=== PATIENT | male | born 1975 | race Caucasian/White ===

== ENCOUNTER 2021-04-05 17:43 | Emergency (ER) | payer OTHER ==
--- NOTE | 2021-04-05 17:55 | EDM.PDOC ---
ED HPI GENERAL MEDICAL PROBLEM - General Stated Complaint: TIGHT CHEST/SOB Time Seen by Provider: 04/05/21 17:55 Source of Information: Reports: Patient History Limitations: Reports: No Limitations - History of Present Illness INITIAL COMMENTS - FREE TEXT/NARRATIVE: 45-year-old male who reports beginning yesterday morning he began to feel this and his central chest and he also felt "fluttering in my heart" and he reports that this continued all through the day yesterday and has continued through the day today as well. The tightness in his chest has pretty much been constant discomfort that he would rate as a 3/10. Nothing really seems to make it better or worse. The feelings of fluttering in his heart seemed to come and go but he reports they happen very frequently. He states when these happen, he feels that he has to cough and he oftentimes feels that he needs to "take a deep breath" that he was having episodes of sharp and shooting pain that would last seconds and were also located in his central and left chest. He has had none of those for the past few days. He does feel that for the past few days he has also been very tired and weak. He has had no phlegm production. There is been no nasal congestion or sore throat. He is swallowing normally. There is no hemoptysis. No neck, jaw, arm or back pain. He states that he had several episodes of the "fluttering of his heart" during my evaluation of him and on the monitor this coincided with a PVC. He does report that he has been eating and drinking normally. He states that he uses caffeine but he does not drink caffeinated beverages to excess. There are no other associated signs or symptoms. There are no other modifying factors. 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 Social & Family History - Family History Cardiac: Reports: CAD (Uncle with SC and .) - Tobacco Use Tobacco Use Status *Q: Current Every Day Tobacco User - Alcohol Use Alcohol Use History: Yes Alcohol Use in Last Twelve Months: Yes Alcohol Use Comment: Quit drinking alcohol on 12/27/2020. States that he was drinking beer daily prior to this. - Recreational Drug Use Recreational Drug Use: Yes Drug Use in Last 12 Months: Yes Recreational Drug Type: Reports: Marijuana/Hashish (Occasional marijuana. 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 Denies: Pleuritic Chest Pain Cardiovascular: Reports: Chest Pain (Tightness.), Palpitations Endocrine: Reports: Fatigue GI/Abdominal: Denies: Nausea, Vomiting : Denies: Dysuria, Hematuria Musculoskeletal: Denies: Arm Pain, Back Pain Skin: Denies: Diaphoresis, Rash Neurological: Reports: Tingling (Tingling all over body). Denies: Dizziness, Headache Psychiatric: Reports: Anxiety Hematologic/Lymphatic: Denies: Easy Bleeding, Easy Bruising ED EXAM, GENERAL - Physical Exam Exam: See Below Exam Limited By: No Limitations General Appearance: Alert, WD/WN, No Apparent Distress, Anxious Eye Exam: Bilateral Eye: EOMI, Normal Inspection Ears: Normal External Exam, Hearing Grossly Normal Ear Exam: Bilateral Ear: Auricle Normal Nose: Normal Inspection, Normal Mucosa, No Blood Throat/Mouth: Normal Oropharynx, Normal Voice, No Airway Compromise Head: Atraumatic, Normocephalic Neck: Normal Inspection, Supple, Non-Tender, Full Range of Motion Respiratory/Chest: No Respiratory Distress, Lungs Clear, Normal Breath Sounds, No Accessory Muscle Use, Chest Non-Tender Cardiovascular: Normal Peripheral Pulses, Regular Rate, Rhythm, No Murmur Peripheral Pulses: 2+: Radial (L), Radial (R) GI/Abdominal: Normal Bowel Sounds, Soft, Non-Tender, No Mass Back Exam: Normal Inspection, Full Range of Motion. No: CVA Tenderness (R), CVA Tenderness (L) Extremities: Normal Inspection, Normal Range of Motion, Non-Tender, No Pedal Edema, Normal Capillary Refill Neurological: Alert, Oriented, CN II-XII Intact, Normal Cognition, No Motor/Sensory Deficits Psychiatric: Anxious Skin Exam: Warm, Dry, Intact, Normal Color, No Rash #1 Interpretation EKG Date: 04/05/21 Time: 17:58 Rhythm: NSR Rate (Beats/Min): 82 [place]: Normal P-Wave: Present QRS: Normal ST-T: Normal QT: Normal Comparison: NA - No Prior EKG EKG Interpretation Comments: Possible LVH. Otherwise normal EKG. Course - Vital Signs Last Recorded V/S: Last Vital Signs Temp 36.8 C 04/05/21 17:43 Pulse 92 04/05/21 17:43 Resp 20 04/05/21 17:43 BP 134/90 04/05/21 17:43 Pulse Ox 99 04/05/21 17:43 - Orders/Labs/Meds Orders: Active Orders 24 hr Category Date Time Status EKG Documentation Completion [RC] ASDIRECTED Care 04/05/21 18:10 Active Chest 2V [CR] Stat Exams 04/05/21 18:09 Taken EKG 12 Lead [EK] Routine Ther 04/05/21 18:09 Ordered Labs: Laboratory Tests 04/05/21 04/05/21 04/05/21 Range/Units 18:20 18:20 18:20 WBC 7.5 (3.2-10.1) x10-3/uL RBC 4.69 (3.90-5.90) x10(6)uL Hgb 14.0 (12.9-17.7) g/dL Hct 41.5 (38.3-50.1) % MCV 88.5 (80.8-98.7) fL MCH 29.9 (27.0-33.3) pg MCHC 33.8 (28.7-35.3) g/dL RDW 14.1 (12.4-15.0) % Plt Count 292 (117-477) x10(3)uL MPV 7.5 (6.7-11.0) fL Neut % (Auto) 58.6 (40.3-71.8) % Lymph % (Auto) 31.7 (15.8-45.3) % [place] % (Auto) 6.4 (5.5-15.2) % Eos % (Auto) 2.7 (0.1-6.8) % Baso % (Auto) 0.6 (0.3-3.8) % Neut # (Auto) 4.4 (1.7-6.9) x10-3/uL Lymph # (Auto) 2.4 (0.5-4.5) x10-3/uL [place] # (Auto) 0.5 (0.0-1.2) x10-3/uL Eos # (Auto) 0.2 (0.0-0.6) x10-3/uL Baso # (Auto) 0.0 (0.0-0.3) x10-3/uL D-Dimer, Quantitative < 0.19 (0.0-0.59) mg/LFEU Sodium 144 (135-145) mmol/L Potassium 3.9 (3.5-5.3) mmol/L Chloride 105 (100-110) mmol/L Carbon Dioxide 28 (21-32) mmol/L BUN 16 (7-18) mg/dL Creatinine 0.9 (0.70-1.30) mg/dL Est Cr Clr Drug Dosing 116.16 mL/min Estimated GFR (MDRD) > 60 (>60) BUN/Creatinine Ratio 17.8 (9-20) Glucose 118 H (80-116) mg/dL Calcium 8.2 L (8.6-10.2) mg/dL Magnesium 1.6 L (1.8-2.5) mg/dL Total Bilirubin 0.2 (0.1-1.3) mg/dL AST 15 (5-25) IU/L ALT 38 H (12-36) U/L Alkaline Phosphatase 53 L (56-112) IU/L Troponin I (4.0-60.3) pg/mL Total Protein 6.8 (6.0-8.0) g/dL Albumin 3.7 (3.5-5.2) g/dL Globulin 3.1 g/dL Albumin/Globulin Ratio 1.2 TSH, Ultra Sensitive (0.36-3.74) IU/mL Urine Opiates Screen (NEGATIVE) Ur Oxycodone Screen (NEGATIVE) Ur Propoxyphene Screen (NEGATIVE) Ur Barbituates Screen (NEGATIVE) Ur Tricyclics Screen (NEGATIVE) Ur Phencyclidine Scrn (NEGATIVE) Ur Amphetamine Screen (NEGATIVE) Urine MDMA Screen (NEGATIVE) U Benzodiazepines Scrn (NEGATIVE) U Cocaine Metab Screen (NEGATIVE) U Marijuana (THC) Screen (NEGATIVE) 04/05/21 04/05/21 Range/Units 18:20 18:40 WBC (3.2-10.1) x10-3/uL RBC (3.90-5.90) x10(6)uL Hgb (12.9-17.7) g/dL Hct (38.3-50.1) % MCV (80.8-98.7) fL MCH (27.0-33.3) pg MCHC (28.7-35.3) g/dL RDW (12.4-15.0) % Plt Count (117-477) x10(3)uL MPV (6.7-11.0) fL Neut % (Auto) (40.3-71.8) % Lymph % (Auto) (15.8-45.3) % [place] % (Auto) (5.5-15.2) % Eos % (Auto) (0.1-6.8) % Baso % (Auto) (0.3-3.8) % Neut # (Auto) (1.7-6.9) x10-3/uL Lymph # (Auto) (0.5-4.5) x10-3/uL [place] # (Auto) (0.0-1.2) x10-3/uL Eos # (Auto) (0.0-0.6) x10-3/uL Baso # (Auto) (0.0-0.3) x10-3/uL D-Dimer, Quantitative (0.0-0.59) mg/LFEU Sodium (135-145) mmol/L Potassium (3.5-5.3) mmol/L Chloride (100-110) mmol/L Carbon Dioxide (21-32) mmol/L BUN (7-18) mg/dL Creatinine (0.70-1.30) mg/dL Est Cr Clr Drug Dosing mL/min Estimated GFR (MDRD) (>60) BUN/Creatinine Ratio (9-20) Glucose (80-116) mg/dL Calcium (8.6-10.2) mg/dL Magnesium (1.8-2.5) mg/dL Total Bilirubin (0.1-1.3) mg/dL AST (5-25) IU/L ALT (12-36) U/L Alkaline Phosphatase (56-112) IU/L Troponin I 8.2 (4.0-60.3) pg/mL Total Protein (6.0-8.0) g/dL Albumin (3.5-5.2) g/dL Globulin g/dL Albumin/Globulin Ratio TSH, Ultra Sensitive 1.44 (0.36-3.74) IU/mL Urine Opiates Screen Negative (NEGATIVE) Ur Oxycodone Screen Negative (NEGATIVE) Ur Propoxyphene Screen Negative (NEGATIVE) Ur Barbituates Screen Negative (NEGATIVE) Ur Tricyclics Screen Negative (NEGATIVE) Ur Phencyclidine Scrn Negative (NEGATIVE) Ur Amphetamine Screen Negative (NEGATIVE) Urine MDMA Screen Negative (NEGATIVE) U Benzodiazepines Scrn Negative (NEGATIVE) U Cocaine Metab Screen Negative (NEGATIVE) U Marijuana (THC) Screen Negative (NEGATIVE) Meds: Medications Discontinued Medications Generic Name Dose Route Start Last Admin Trade Name Freq PRN Reason Stop Dose Admin Aspirin 324 mg 04/05/21 18:10 04/05/21 18:24 Aspirin 81 Mg Tab.Chew PO 04/05/21 18:11 324 mg ONETIME ONE Administration Magnesium Oxide 800 mg 04/05/21 19:05 04/05/21 19:13 Magnesium Oxide 400 Mg Tab PO 04/05/21 19:06 800 mg ONETIME ONE Administration - Radiology Interpretation Free Text/Narrative:: Chest x-ray PA and lateral shows no acute disease per my read. - Re-Assessments/Exams Free Text/Narrative Re-Assessment/Exam: 04/05/21 19:00: Patient reports that he feels well. He still reports that he has been feeling those "flutterings" in his heart and even while I am talking to him I see a PVC that he feels as that fluttering sensation. All of his lab tests were reassuringly normal except for a mildly low he needs them level at 1.6. His potassium was normal. His calcium was normal. His troponin was normal (and with him having chest tightness for the past 2 days continuously without relief, I think this rules out any SC and makes heart related issue very unlikely) and his d-dimer was normal. Has H was normal as well. His chest x-ray showed no acute disease and his EKG did have voltage criteria for LVH but was otherwise normal. The patient tells me now that he drinks energy drinks almost daily and he probably has 2 cups of coffee a day. I'm unsure why he is having the palpitations. I am willing to have him stop the energy drinks and switch to decaffeinated coffee. I have also told him that he will need to increase his fluid intake and I will give him a dose of magnesium today and place him on magnesium twice daily for the next 5 days. I have stressed to the patient that despite the negative workup today, he needs to follow-up with his primary doctor as he will need additional outpatient workup which could include an exercise stress test, Holter monitor and possibly even an echocardiogram. The patient does feel comfortable to plan for discharge. Precautions and reasons for return to the emergency department were discussed with the patient while he was in the emergency department and were detailed in the patient's discharge instructions. Departure - Departure Time of Disposition: 07:15 Disposition: Home, Self-Care 01 Condition: Good (Stable.) Clinical Impression: Palpitations Chest pain Qualifiers: Chest pain type: unspecified Qualified Code(s): R07.9 - Chest pain, unspecified Prescriptions: Magnesium Oxide 400 mg PO BID 5 Days #10 tablet Instructions: Nonspecific Chest Pain, Adult, Palpitations, [id number] Referrals: Megan Cruz MD [Primary Care Provider] - Additional Instructions: Your blood tests were all reassuringly normal except he had a mildly low magnesium level. Specifically, you're heart enzyme test was normal and with you having the discomfort in her chest continuously for the past 2 days, I feel that this rules out a heart attack. Your EKG was also normal. The blood clot screening test was also normal. Your chest x-ray was normal. I am unsure why you or having the flutterings in your heart. These appear to be extra beats from the lower part of your heart called PVCs or premature ventricular contractions. At this point, you do not appear to have anything of the serious nature. However, it is important that you follow-up with your primary doctor as you will need additional testing to check you out more fully. I would strongly advise you to avoid any energy drinks and to avoid caffeine or other stimulants. You should increase your fluid intake. I strongly advise you to stop smoking as well. I did send a prescription to [facility] for magnesium for you to take over the next 5 days. Back to the emergency department for worsening discomfort/pain, severe weakness, fast heart rate or any other concerning signs or symptoms. Sepsis Event Note (ED) - Focused Exam Vital Signs: Vital Signs Temp Pulse Resp BP Pulse Ox 04/05/21 17:43 36.8 C 92 20 134/90 99 - My Orders Last 24 Hours: My Active Orders 04/05/21 18:09 Chest 2V [CR] Stat EKG 12 Lead [EK] Routine 04/05/21 18:10 EKG Documentation Completion [RC] ASDIRECTED - Assessment/Plan Last 24 Hours: My Active Orders 04/05/21 18:09 Chest 2V [CR] Stat EKG 12 Lead [EK] Routine 04/05/21 18:10 EKG Documentation Completion [RC] ASDIRECTED
[2021-04-05] MEDS ORDERED: Aspirin 81 MG Tab.Chew PO ONE (18:10)
[2021-04-05 18:21] VITALS: BP 134/90; PULSE 92
[2021-04-05] MEDS ORDERED: Magnesium Oxide 400 MG Tab PO ONE (19:05)
--- NOTE | 2021-04-06 10:48 | CR ---
INDICATION: Tightness in chest with flutters. CHEST TWO-VIEWS [id number]: Two PA views and a lateral view of the chest 04/06/21 were compared with 03/13/16. The heart and mediastinum are unremarkable. A minimal dextroconvex scoliosis upper middle thoracic spine is again noted. Overlying EKG leads are noted. Pulmonary markings are similar to the previous study without a definite active infiltrate or effusion. IMPRESSION: No acute process. MTDD
== END 2021-04-05 19:35 | disposition home or self-care (01) ==
LOC: FB.ED 17:43
DX: R07.89 Other chest pain (principal); R00.2 Palpitations; Z72.0 Tobacco use
CPT/HCPCS: 36415; 71046; 80053; 80305; 83735; 84443; 84484; 85025; 85379; 93005; 99285; A9270; 93010; 99284